=== PATIENT | female | born 1970 | race Caucasian/White ===

== ENCOUNTER 2016-09-28 17:41 | Emergency (ER) | payer OTHER ==
[~2016-09-28 17:41] MED LIST: FLONASE 0.05% N16 G1; PROMETHAZINE D118 ML PO; ZITHROMAX PO
== END 2016-09-28 17:53 | disposition home or self-care (01) ==
LOC: CED 17:41
DX: H65.91 Unspecified nonsuppurative otitis media, right ear (principal); F17.210 Nicotine dependence, cigarettes, uncomplicated
CPT/HCPCS: 99282